=== PATIENT | male | born 1930 | race Caucasian/White ===

== ENCOUNTER 2018-12-01 05:24 | Day surgery (SDC) | payer OTHER ==
[~2018-12-01] VITALS: Ht 177.8 cm; Wt 68.0 kg
[~2018-12-01 05:24] MED LIST: ASPIRIN325 PO
[2018-12-01 10:48] VITALS: BP 119/48
--- NOTE | 2018-12-05 06:16 | O ---
[facility] [place] [address] [place] [address] OPERATIVE REPORT Name: RICHARD LOPEZ Room #: DEP [facility] M..#: [id number] Admission: 12/01/18 ������������������ Attend Phys: Nathaniel Salazar MD Discharge: 12/01/18 ������������������ Date of : [birth year] Report #: [id number] THIS REPORT FOR: //name// CC: Jimmy Salazar DATE OF SERVICE: 12/01/2018 PREOPERATIVE DIAGNOSIS: Tumor of left lower lid and cheek. POSTOPERATIVE DIAGNOSIS: Tumor of left lower lid and cheek. PROCEDURE: Excision of tumor of left lower lid and cheek with musculocutaneous flap repair of defect based on the temporalis muscle. SURGEON: Nathaniel Salazar M.D. G[employer] ATTENDANT: None. ANESTHESIA: MAC. COMPLICATIONS: None. 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 He presents today for excision of this lesion with repair of the ensuing defect. Frozen section had initially been planned, but preoperative discussion with the pathologist revealed that the tumor was too large for her to be able to freeze the entire margin, so permanent sections are going to be able to be utilized. Informed consent was obtained to include but not limited to the potential risk for loss of vision, bleeding, infection, failure to improve the problem, and the potential need for further surgery or treatment. DESCRIPTION OF PROCEDURE: The patient was taken to the operating room where 2% Xylocaine with epinephrine mixed with equal parts of 0.75% Marcaine with Wydase was administered transcutaneously and transconjunctivally to the left lower lid, the left lateral canthus, the left cheek, the left infratemporal fossa and the left preauricular space. The patient was subsequently prepped and draped in the usual sterile fashion. A skin marking pen was then utilized to outline the lesion including 1-2 mm of normal appearing tissue around the entire margin. This created a considerable specimen just in terms of bulk. The incisions were then made with a 15C blade and a suture placed at 12 o'clock. The incisions were carried down around the malleus up through the lateral canthal area back [address] [address] OPERATIVE REPORT Name: RICHARD LOPEZ Ilya Room #: DEP [facility]..#: [id number] Admission: 12/01/18 ������������������ Attend Phys: Nathaniel Salazar MD Discharge: 12/01/18 ������������������ Date of : [birth year] Report #: [id number] into the infratemporal fossa and then down around into the preauricular area. The specimen was dropped off the field with a suture marking at the 12 o'clock position for the pathologist and her frozen section analysis. Hemostasis was then achieved in the field with diligent pinpoint monopolar cautery. The site inspected and a temporalis musculocutaneous flap was outlined. The relaxing incisions were made and the dissection carried back through into the temporalis muscle. Part of the superficial temporal artery had been submitted in the original specimen, so a bulky part of the muscle was brought back forward to ensure good blood supply. Hemostasis was re-achieved. The secondary defect was 7 cm x 9 cm. The flap was rotated into position and secured with several layers of interrupted buried 5-0 Vicryl sutures. The subcutaneous structures more superficially were similarly closed with Vicryl sutures. The final closure of the skin was accomplished with 6-0 plain gut sutures. The wound was then cleaned and dressed with ophthalmic ointment and the patient subsequently transported to the recovery area having tolerated the procedures well with no anesthetic or operative complications being noted. ��������������������������������������������� <ELECTRONICALLY SIGNED> ���������������������������������������� By: Nathaniel Salazar MD ��������������������������������������������� 12/05/18 0616 1120 [id number] Nathaniel Salazar MD /nt
--- NOTE | 2018-12-05 10:06 | PATH ---
[facility] [address] [place] [address] PATHOLOGY RPT PROCEDURE Name: RICHARD SALAS Room #: DEP [facility]..#: [id number] ������������������ Admission: 12/01/18 ������������������ Date of : [birth year] Discharge: 12/01/18 Report #: [id number] Path Case #: [id number] [facility] Accession Number: [id number] . 01 Material submitted: . PART A: TUMOR LEFT LOWER LID/CHEEK PART B: INFERIOR BUROW TRIANGLE, LEFT LOWER LID . 01 Clinical history: . Tumor left lower lid. . 02 Diagnosis: A. 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 - FOCAL PERINEURAL INVASION IDENTIFIED. - MARGINS OF RESECTION FREE OF MALIGNANCY. . B. Skin, inferior Burow's triangle, biopsy: - Actinic keratosis along with solar elastosis. - Negative for malignancy. (IUV/db; 12/02/2018) LBQ/12/05/2018 . 02 Electronically signed: . Breonna Stewart MD, Pathologist NPI- [id number] . 01 Gross description: . A. Received in formalin labeled "Richard Salas, tumor left lower lid/cheek suture at 12:00" is an oriented irregular excision of clayton-white skin measuring 2.2 x 1.8 x 0.3 cm. There is a suture at 12:00. The specimen is inked yellow from 12:00 to 3:00, blue from 3:00 to 6:00, and black from 6:00 to 9:00 to 12:00. The skin surface displays a clayton-white nodular lesion measuring 1.8 x 1.7 x 0.4 cm. The lesion is located 0.2 cm to 12:00, 0.1 cm to 3:00, 0.1 cm to 6:00, and 0.1 cm to 9:00. The specimen is serially sectioned from 12:00 to 6:00 into 9 pieces. The lesion is located less than 0.1 cm from the deep margin. The specimen is submitted entirely and sequentially from 12:00 to 6:00 in cassettes as follows: A1 12:00 margin, perpendicular sections (5 pieces) A2 slices 2-4 A3 slices 5-6 A4 slices 7-8 A5 slice 9, perpendicular sections (5 pieces) . B. Received in formalin labeled "Richard Salas, inferior [address] [address] PATHOLOGY RPT PROCEDURE Name: RICHARD SALAS Ilya [id number] ������������������ Admission: 12/01/18 ������������������ Date of : [birth year] Discharge: 12/01/18 Report #: [id number] Path Case #: [id number] triangle" and further labeled on the problem specimen form as "left lower lid" is an unoriented triangular portion of skin measuring 0.8 x 0.7 x 0.2 cm. A faint area of purple ink is identified on one aspect, which is inked black. The remainder of the specimen is inked blue. The specimen is serially sectioned into 4 pieces and submitted entirely in cassette B1.([facility]; 12/01/2018) SYC/SYC . 02 Pathologist provided ICD-10: C44.329, L57.0, L57.8 . 02 CPT . 466350, 450476 Specimen Comment: A courtesy copy of this report has been sent to Specimen Comment: [phone]. Specimen Comment: Report sent to Performed at: [address] [facility] [address], [place], [place] [id number] MD Israel Wallis MD Phone: [phone] Performed at: [address] [facility] [address] [id number] MD Breonna Stewart MD Phone: [phone]
== END 2018-12-01 11:20 | disposition home or self-care (01) ==
LOC: OR 05:24 → TBA 05:24 → OR 10:56
DX: C44.1992 Other specified malignant neoplasm of skin of left lower eyelid, including canthus (principal); L57.0 Actinic keratosis; L57.8 Other skin changes due to chronic exposure to nonionizing radiation; Z87.891 Personal history of nicotine dependence; Z85.820 Personal history of malignant melanoma of skin; Z90.49 Acquired absence of other specified parts of digestive tract; Z98.890 Other specified postprocedural states; Z87.19 Personal history of other diseases of the digestive system; Z79.82 Long term (current) use of aspirin; Z88.8 Allergy status to other drugs, medicaments and biological substances; Z79.899 Other long term (current) drug therapy
CPT/HCPCS: 50010; 50101; 50386; 50398; 51636; 56528; 56531; 62110; 62850; 70005